=== PATIENT | female | born 1995 | race American Indian/Alaskan Native ===

== ENCOUNTER 2021-02-01 02:50 | Emergency (ER) | payer MEDICAID ==
[2021-02-01 03:02] VITALS: BP 108/51
[2021-02-01] MEDS ORDERED: FAMOTIDINE 20 MG TAB PO ONE (03:26)
[2021-02-01 04:01] LABS: Basophils % (Auto) 0.3 % (0.0-1.8); Eosinophils # (Auto) 0.1 K/mm3 (0.0-0.4); Eosinophils % (Auto) 1.4 % (0.0-4.3); Hematocrit 35.3 % (30.3-42.9); Hemoglobin 11.5 gm/dl (10.1-14.3); Lymphocytes # (Auto) 1.8 K/mm3 (1.2-5.4); Lymphocytes % (Auto) 20.5 % (13.4-35.0); Mean Corpuscular HGB Conc 33 % (30-34); Mean Corpuscular Volume 97 fl (79-97); Monocytes # (Auto) 0.5 K/mm3 (0.0-0.8); Monocytes % (Auto) 6.2 % (0.0-7.3); Platelet Count 237 K/mm3 (140-440); Red Blood Count 3.65 M/mm3 (3.65-5.03); Red Cell Distribution Width 12.1 % (13.2-15.2)
[2021-02-01 04:10] LABS: Alanine Aminotransferase 11 units/L (7-56); Albumin 3.9 g/dL (3.9-5); Blood Urea Nitrogen 15 mg/dL (7-17); Calcium 9.2 mg/dL (8.4-10.2); Hemolysis Index 3
[2021-02-01 04:31] LABS: BUN/Creatinine Ratio 25
--- NOTE | 2021-02-01 04:41 | Ultrasound Report ---
ULTRASOUND OBSTETRIC Indication: abdominal pain, Findings: There is a single, living intrauterine . Yolk sac is present along with pole. [place]-rump length = 2.03 cm = 8 weeks, 4 day(s). heart rate is 181 beats per minute. The ovaries are nonvisualized. There is no free fluid. Impression: Single, living intrauterine with estimated sonographic age of 8 weeks, 4 day(s). Signer Name: Tre Sullivan MD Signed: 02/01/2021 4:37 AM Workstation Name: [id number]
[2021-02-01 06:11] LABS: Bilirubin,Urine NEG (Negative); Blood,Urine SM (Negative); Color,Urine Straw (Yellow); Protein,Urine <15 mg/dL mg/dL (Negative); Urobilinogen,Urine < 2.0 mg/dL (<2.0)
--- NOTE | 2021-02-01 06:30 | Emergency Department Report ---
ED Abdominal Pain HPI - General Chief Complaint: Abdominal Pain Stated Complaint: ABD PAIN PUI?: Yes Source: patient, EMS Mode of arrival: Stretcher Limitations: No Limitations - History of Present Illness Initial Comments: Patient is a A4 25-year-old -[place] female who is approximately 8 weeks gestation and who presents to the ED with complaint of acute onset intermittent epigastric pain for the last 1 week, worse in the last 2 days. Kamlesh stearns states that food makes the pain worse. Patient denies fever, chills, cough, sore throat, nausea and vomiting, diarrhea, vaginal bleeding, dysuria, urinary frequency and urgency, change in vision, headache, sore throat and lack of appetite. Vaginal bleeding -: Sudden, week(s) (1) Location: epigastric Radiation: none Migration to: no migration, epigastric Severity: moderate Severity scale (0 -10): 5 Quality: aching, dull Consistency: intermittent Worsens With: eating, movement Associated Symptoms: denies other symptoms. denies: nausea, vomiting, diarrhea, chills, dysuria, hematemesis, hematochezia - Related Data Allergies Allergy/AdvReac Type Severity Reaction Status Date / Time Penicillins AdvReac Rash Verified 02/01/21 02:57 ED Review of Systems ROS: Stated complaint: ABD PAIN Other details as noted in HPI Constitutional: denies: chills, fever Eyes: denies: eye pain, eye discharge, vision change ENT: denies: ear pain, throat pain Respiratory: denies: cough, shortness of breath, wheezing Cardiovascular: denies: chest pain, palpitations Endocrine: no symptoms reported Gastrointestinal: abdominal pain (Palpable mild epigastric tenderness). denies: nausea, diarrhea Genitourinary: denies: urgency, dysuria, discharge Musculoskeletal: denies: back pain, joint swelling, arthralgia Skin: denies: rash, lesions Neurological: denies: headache, weakness, paresthesias Psychiatric: denies: anxiety, depression Hematological/Lymphatic: denies: easy bleeding, easy bruising ED Past Medical Hx - Past Medical History Previous Medical History?: Yes Hx Asthma: Yes - Surgical History Past Surgical History?: Yes Additional Surgical History: DNC - Social History Smoking Status: Never Smoker Substance Use Type: None ED Physical Exam - General Limitations: No Limitations General appearance: alert, in no apparent distress - Head Head exam: Present: atraumatic, normocephalic - Eye Eye exam: Present: normal appearance, PERRL, EOMI - ENT ENT exam: Present: normal exam, normal orophraynx, mucous membranes moist, TM's normal bilaterally, normal external ear exam - Neck Neck exam: Present: normal inspection, full ROM - Respiratory Respiratory exam: Present: normal lung sounds bilaterally. Absent: respiratory distress, wheezes, rales, rhonchi, chest wall tenderness, accessory muscle use, decreased breath sounds - Cardiovascular Cardiovascular Exam: Present: regular rate, normal rhythm, normal heart sounds. Absent: systolic murmur, diastolic murmur, rubs, gallop - GI/Abdominal GI/Abdominal exam: Present: soft, normal bowel sounds. Absent: tenderness, guarding, rebound, organomegaly, mass - Extremities Exam Extremities exam: Present: normal inspection, full ROM, normal capillary refill - Back Exam Back exam: Present: normal inspection, full ROM. Absent: tenderness, CVA tenderness (R), CVA tenderness (L), muscle spasm, paraspinal tenderness, verteb ral tenderness - Neurological Exam Neurological exam: Present: alert, oriented X3, CN II-XII intact, normal gait, reflexes normal - Psychiatric Psychiatric exam: Present: normal affect, normal mood - Skin Skin exam: Present: warm, dry, intact, normal color. Absent: rash ED Course Vital Signs 02/01/21 02:57 Temperature 99.1 F Pulse Rate 81 Respiratory 16 Rate Blood Pressure 108/51 [Left] O2 Sat by Pulse 99 Oximetry ED Medical Decision Making - Lab Data Result diagrams: 02/01/21 03:33 02/01/21 03:33 - Radiology Data Radiology results: report reviewed, image reviewed [address] [address] Ultrasound Report Signed Patient: CASSY MCLAIN MR#: [id number] : 1995 Acct:[id number] Age/Sex: 25 / F ADM Date: 02/01/21 Loc: ED Attending Dr: Ordering Physician: KAMLESH HUGHES Date of Service: 02/01/21 Procedure(s): US OB <= 14 weeks fetus Accession Number(s): [id number] cc: KAMLESH HUGHES ULTRASOUND OBSTETRIC Indication: abdominal pain, Findings: There is a single, living intrauterine . Yolk sac is present along with pole. [place]-rump length = 2.03 cm = 8 weeks, 4 day(s). heart rate is 181 beats per minute. The ovaries are nonvisualized. There is no free fluid. Impression: Single, living intrauterine with estimated sonographic age of 8 weeks, 4 day(s). Signer Name: Tre Sullivan MD Signed: 02/01/2021 4:37 AM Workstation Name: [email or web address] Transcribed By: JUJU Dictated By: Tre Sullivan MD Electronically Authenticated By: Tre Sullivan MD Signed Date/Time: 02/01/21436 DD/ 5 TD/TT: - Medical Decision Making In the ED, patient is alert and oriented x3 and is not in any distress. Lab test results were reviewed and are all nonactionable except for mild hyponatremia of 133 mmol/L. Patient was treated in the ED with antacids. Pelvic ultrasound showed a single, living intrauterine with estimated sonographic age of 8 weeks, 4 day(s) with heart rates of 181 bpm. On reevaluation, patient's pain is well controlled medications. Patient however left the ED AGAINST MEDICAL ADVICE before urinalysis resulted.. - Differential Diagnosis GERD; UTI; cholelithiasis; gastritis; gastroenteritis; Critical care attestation.: If time is entered above; I have spent that time in minutes in the direct care of this critically ill patient, excluding procedure time. ED Disposition Clinical Impression: Abdominal pain during in first trimester Disposition: 07 LEFT AGAINST MEDICAL ADVICE Is pt being admited?: No Does the pt Need Aspirin: No Condition: Undetermined Instructions: Abdominal Pain (ED), Abdominal Pain, Adult, [id number], Abdominal Pain During Referrals: ALE AVENDANO MD [Staff Physician] - 3-5 Days Time of Disposition: 05:45 Print Language: BELARUSIAN
[2021-02-01 06:33] LABS: WBC,Urine < 1.0 /HPF (0.0-6.0)
[2021-02-01] MEDS ORDERED: fentaNYL 100 MCG/2 ML INJ ONE (17:04)
[2021-02-01] MEDS ORDERED: ONDANSETRON 4 MG/2 ML INJ ONE (17:05)
== END 2021-02-01 06:30 | disposition left against medical advice (07) ==
LOC: ED 02:50
DX: O26.891 Other specified pregnancy related conditions, first trimester (principal); R10.84 Generalized abdominal pain; Z3A.01 Less than 8 weeks gestation of pregnancy
CPT/HCPCS: 36415; 76801; 80053; 81001; 84702; 84703; 85025; 99284; J2405; J3010